=== PATIENT | male | born 1935 | race Caucasian/White ===

== ENCOUNTER 2019-02-14 04:03 | Observation (INO) ==
--- NOTE | 2019-02-14 04:34 | PROVIDER DOCUMENTATION ---
HPI-Chest Pain - General Stated Complaint: CHEST PAIN Time Seen by Provider: 02/14/19 04:24 Source: patient, family Allergies/Adverse Reactions: Patient Allergies Allergy/AdvReac Type Severity Reaction Status Date / Time No Known Allergies Allergy Verified 11/03/18 09:15 Home Medications: Home Medication List Medication Instructions Recorded Confirmed Last Taken Type Albuterol Sulfate [Ventolin] 5 mg INHALATION PRN PRN 11/03/18 02/14/19 02/14/19 08:00 History 5 MG Losartan/Hydrochlorothiazide 1 ea PO DAILY 11/03/18 02/14/19 02/13/19 18:00 History [Losartan-Hctz 100-25 mg Tab] 1 EA Montelukast [Singulair] 10 mg PO DAILY 11/03/18 02/14/19 02/13/19 18:00 History 10 MG Tamsulosin [Flomax] 0.4 mg PO DAILY 11/03/18 02/14/19 02/13/19 18:00 History 0.4 MG Esomeprazole Magnesium [Nexium] 20 mg PO HS 02/14/19 02/14/19 02/13/19 18:00 History 20 mg - History of Present Illness-CP Nature of Presenting Problem: Presents to the EC with complaints of acute onset of chest pain while he was lying in bed. States it is centrally located and went to his back and jaw. He states this has never happened to him before. He thought he was having a heart attack so he came in. he took 4 ASA at home. Endorsed some SOB associated with it but denied any sweating, nausea, vomiting. States he had a stress test many years ago but has never had a cardiac cath. Review of Systems - Adult - REVIEW OF SYSTEMS - ADULT Constitutional: reports: see HPI Eyes: reports: no symptoms reported Ears, Nose, Mouth & Throat: reports: no symptoms reported Cardiovascular: reports: see HPI, chest pain Respiratory: reports: see HPI, shortness of breath Gastrointestinal: reports: no symptoms reported Genitourinary: reports: no symptoms reported Musculoskeletal: reports: back pain Integumentary: reports: no symptoms reported Neurological: reports: no symptoms reported Psychiatric: reports: no symptoms reported Endocrine: reports: no symptoms reported Hematologic/Lymphatic: reports: no symptoms reported Allergic/Immunologic: reports: no symptoms reported All Other Systems: Reviewed and Negative Past History - Adult - PAST MEDICAL HISTORY-ADULT Review of Records: reports: Old Records Reviewed Physical Exam-General - PHYSICAL EXAM-ADULT Initial Vital Signs Reviewed: Yes - CONSTITUTIONAL General Appearance: appears well, alert, mild distress (uncomfortable appearing) - EYES Eyes: PERRL/EOMI - HEAD, EARS, NOSE, MOUTH & THROAT HENMT: normocephalic/atraumatic, moist mucous membranes - NECK Neck: non-tender, full range of motion, supple, normal inspection - RESPIRATORY Respiratory: chest non-tender, lungs clear, normal breath sounds, no respiratory distress, no accessory muscle use - CARDIOVASCULAR Cardiovascular: normal peripheral pulses, bradycardia, systolic murmur - GASTROINTESTINAL (ABDOMEN) Abdominal Exam: normal bowel sounds, non tender, soft - MUSCULOSKELETAL Back Exam: normal inspection, no vertebral tenderness Extremity: normal range of motion, non-tender, normal gait, normal inspection, no pedal edema - SKIN Integumentary: normal color, warm/dry - NEUROLOGIC Neurologic: grossly normal - PSYCHIATRIC Psych/Mental Status: normal mood/affect, oriented x 3 - HEART Score HEART Score: History: Highly Suspicious HEART Score: ECG: Normal HEART Score: Age: > or = 65 Years HEART Score: Risk Factors for Atherosclerotic Disease: 1 or 2 Risk Factors HEART Score: Troponin: < or = Normal Limit Total HEART Score:: 5 Progress - PLAN OF CARE/RESULTS Progress/Plan/Lab Results: Laboratory Results - last 24 hr 02/14/19 02/14/19 02/14/19 05:24 05:24 05:24 WBC 5.00 RBC 4.57 L Hgb 14.0 Hct 41.6 L MCV 91.0 MCH 30.6 MCHC 33.7 RDW Std Deviation 13.4 Plt Count 188 MPV 10.4 Immature Gran % (Auto) 0.4 Neut % (Auto) 67.4 Lymph % (Auto) 17.4 L Andrew % (Auto) 8.8 Eos % (Auto) 5.0 Baso % (Auto) 1.0 H Immature Gran # (Auto) 0.02 Neut # (Auto) 3.37 Lymph # (Auto) 0.87 L Andrew # (Auto) 0.44 Eos # (Auto) 0.25 Baso # (Auto) 0.05 PT INR PTT (Actin FS) Sodium 141 Potassium 3.8 Chloride 105 Carbon Dioxide 25 Anion Gap 11 BUN 20 Creatinine 1.1 Estimated GFR/1.73 m2 > 60 BUN/Creatinine Ratio 18 Glucose 107 H Calculated Osmolality 284 Calcium 8.9 Total Bilirubin 0.42 AST 13 ALT 13 Alkaline Phosphatase 93 Troponin T Kau-V-Qrrzyacskwf Pept 80 Total Protein 6.9 Albumin 3.9 Globulin 3.0 Albumin/Globulin Ratio 1.3 02/14/19 02/14/19 05:24 05:24 WBC RBC Hgb Hct MCV MCH MCHC RDW Std Deviation Plt Count MPV Immature Gran % (Auto) Neut % (Auto) Lymph % (Auto) Andrew % (Auto) Eos % (Auto) Baso % (Auto) Immature Gran # (Auto) Neut # (Auto) Lymph # (Auto) Andrew # (Auto) Eos # (Auto) Baso # (Auto) PT 13.9 INR 1.05 PTT (Actin FS) 37.6 Sodium Potassium Chloride Carbon Dioxide Anion Gap BUN Creatinine Estimated GFR/1.73 m2 BUN/Creatinine Ratio Glucose Calculated Osmolality Calcium Total Bilirubin AST ALT Alkaline Phosphatase Troponin T < 0.010 Ytn-Y-Bchvqctroob Pept Total Protein Albumin Globulin Albumin/Globulin Ratio Orders Category Date Time Status Admit - [facility] Routine AdmDCTranf 02/14/19 10:17 Active Apply Mechanical Device [QM] ORDERED Care 02/14/19 10:17 Active EKG PRN for Chest Pain ORDERED Care 02/14/19 10:17 Active Notify MD if DIRECTED Care 02/14/19 10:17 Active Nursing- MD Consult Request ROUTINE Care 02/14/19 10:17 Completed Saline Loc DIRECTED Care 02/14/19 10:17 Active Update & Confirm Home Medicati ROUTINE Care 02/14/19 10:17 Active Vital Signs Order Q 4-HR ASSESS Care 02/14/19 10:17 Active Z-Document. for Tele Applied ORDERED Care 02/14/19 10:17 Completed Heart Healthy Diet Diet 02/14/19 10:17 Active NPO Diet 02/15/19 00:01 Active CHEST-PORTABLE [RAD] Routine Exams 02/15/19 06:00 Ordered CHEST-PORTABLE [RAD] Stat Exams 02/14/19 04:34 Completed MYOCARDIAL PERF SCAN, STR/REST [NM] Routine Exams 02/15/19 07:00 Ordered CBC WITH ELECTRONIC DIFF [HEME] Routine Lab 02/15/19 06:00 Ordered CBC WITH ELECTRONIC DIFF [HEME] Stat Lab 02/14/19 05:24 Completed CK PROFILE [SP CHEM] Q8H Lab 02/14/19 10:40 Completed CK PROFILE [SP CHEM] Q8H Lab 02/14/19 18:19 Completed CK PROFILE [SP CHEM] Q8H Lab 02/15/19 02:17 Ordered CK TOTAL [CHEM] Q8H Lab 02/15/19 02:17 Ordered COMPREHENSIVE METABOLIC PANEL [CHEM] Routine Lab 02/15/19 06:00 Ordered COMPREHENSIVE METABOLIC PANEL [CHEM] Stat Lab 02/14/19 05:24 Completed LIPID PROFILE W/CALC LDL [LIPIDS] Routine Lab 02/15/19 06:00 Ordered MAGNESIUM [CHEM] Routine Lab 02/14/19 10:40 Completed PRO B-NATRIURETIC PEPTIDE Stat Lab 02/14/19 05:24 Completed PROTIME WITH INR [COAG] Stat Lab 02/14/19 05:24 Completed PTT [COAG] Stat Lab 02/14/19 05:24 Completed TROPONIN T Q8H Lab 02/14/19 10:40 Completed TROPONIN T Q8H Lab 02/14/19 18:19 Completed TROPONIN T Q8H Lab 02/15/19 02:17 Ordered TROPONIN T Stat Lab 02/14/19 05:24 Completed Acetaminophen [Tylenol] Med 02/14/19 10:17 Active 650 mg PO Q6H PRN PRN Aspirin Med 02/14/19 10:17 Active 325 mg PO DAILY Nitroglycerin Med 02/14/19 06:18 Discontinued 0.5 inch TOP NOW ONE Nitroglycerin Sl [Nitroglycerin] Med 02/14/19 10:17 Active 0.4 mg SL Q5M PRN PRN Omeprazole [Prilosec] Med 02/15/19 07:00 Active 20 mg PO DAILY@0700 Ondansetron [Zofran] Med 02/14/19 10:17 Active 4 mg IV Q4H PRN PRN Oxygen Device Routine Oth 02/14/19 10:17 Completed Telemetry [OM.EQ] Routine Oth 02/14/19 10:17 Active EKG [EKG] Routine Ther 02/15/19 06:00 Ordered EKG [EKG] Stat Ther 02/14/19 04:10 Draft Echo Spec/Color Doppler Routine Ther 02/14/19 10:17 Completed Transfer/Admit Order [TRANSFER] Routine Transfer 02/14/19 08:57 Completed Result Diagrams: 02/14/19 05:24 02/14/19 05:24 - EKG 1 Time of EKG reading by physician:: 04:13 EKG Read and Signed by:: Sara Espino EKG Interpretation (*Must complete 3 of following elements*): Abnormal Rate: 48 Rhythm: Bradycardia [place]: normal QRS: normal OK Interval: normal ST Wave: normal - CONSULTS/PCP/HOSPITALIST Notification #1 *Consult/PCP/Hospitalist*: Shiloh bailey Hospitalist Time Discussed: 08:50 Consult Disposition: Will see in ED, Admit - CHANGE OF SHIFT REPORT (ED Provider) 1 Report Given and Care Transferred to:: Dr Panda Time of Transfer: 07:00 Items Pending: Physician Consult/Arrival (Pending hospitalist page back for admission) Departure - Departure Date of Disposition Decision: 02/14/19 Time of Disposition Decision: 06:47 DIAGNOSIS: Chest pain Disposition: ADMITTED INPATIENT 09 Certified Medical Emergency: Emergent Condition: Stable - Critical Care Note This patient required my direct & personal management of CC.: No Attestation - Physician/ TFIFANIE Attestation Patient care was provided by Advanced Practice Provider:: No The physician spent face to face time with patient:: Yes Advanced Practice Provider documentation review:: Supervising physician onsite and consulted in the evaluation and care of this patient. The physician did have a face to face encounter with the patient.
[2019-02-14 05:40] LABS: BASO# 0.05 X1000 (0.0-0.2); EOS# 0.25 X1000 (0.0-0.7); HEMATOCRIT 41.6 % (42.0-52.0); IMM GRAN# 0.02 X1000 (0.0-0.04); IMM GRAN% 0.4 % (0.0-0.5); LYMPH# 0.87 X1000 (1.2-3.4); LYMPH% 17.4 % (20.5-51.1); MCH 30.6 PG (27-31); MCHC 33.7 g/dL (33-37); MONO# 0.44 X1000 (0.11-0.59); MONO% 8.8 % (1.7-9.3); MPV 10.4 FL (7.4-10.4); NEUT# 3.37 X1000 (1.4-6.5); NEUT% 67.4 % (42.2-75.2); PLT 188 X1000 (130-400); RBC 4.57 XMIL (4.7-6.1); RDW 13.4 % (11.5-14.5)
[2019-02-14 05:44] LABS: INR 1.05; PROTIME 13.9 Seconds (11.0-16.0)
[2019-02-14 05:45] LABS: PTT 37.6 Seconds (22.3-41.8)
[2019-02-14] MEDS ORDERED: NITROGLYCERIN TOP ONE (06:18)
[2019-02-14 06:38] LABS: AGAP 11; ALB/GLOB RATIO 1.3; ALBUMIN 3.9 g/dL (3.5-5.0); ALKALINE PHOSPHATASE 93 U/L (32-122); BUN 20 mg/dL (8-22); CALCIUM 8.9 mg/dL (8.8-10.2); CHLORIDE 105 mmol/L (98-107); COSMO 284; CREATININE 1.1 mg/dL (0.7-1.2); ESTIMATED GFR > 60; GLUCOSE 107 mg/dL (70-104); GOT 13 U/L (10-34); GPT 13 U/L (10-44); POTASSIUM 3.8 mmol/L (3.5-5.1); SODIUM 141 mmol/L (136-145); TCO2 25 mmol/L (25-35); TOTAL BILIRUBIN 0.42 mg/dL (0.20-1.00); TOTAL PROTEIN 6.9 g/dL (6.3-8.3)
--- NOTE | 2019-02-14 07:00 | Diag Imaging Result Doc PS360 ---
EXAM: CHEST-PORTABLE 02/14/2019 HISTORY: chest pain TECHNIQUE: AP portable at 0504 COMMENT: There are no previous studies available for comparison. There is some questionable atelectasis in the left base. Otherwise the lungs are clear. The heart size is at the upper limits of normal. IMPRESSION: Minimal left lower lobe atelectasis. Electronically signed by Jarvis Richmond 02/14/2019 6:57 AM
--- NOTE | 2019-02-14 07:32 | EKG Report ---
Test Performed on : 02/14/2019 04:10:19 AM Test Reason : CP Blood Pressure : / mmHG Vent. Rate : 048 BPM Atrial Rate : 048 BPM P-R Int : 168 ms QRS Dur : 106 ms QT Int : 450 ms P-R-T Axes : 055 010 048 degrees QTc Int : 402 ms Sinus bradycardia. with sinus arrhythmia. Cannot rule out Inferior infarct , age undetermined Abnormal ECG When compared with ECG of 03-NOV-2018 09:12, No significant change was found Unconfirmed Result
[2019-02-14] MEDS ORDERED: ZOFRAN IV PRN (10:17)
[2019-02-14] MEDS ORDERED: TYLENOL PO PRN (10:17)
[2019-02-14] MEDS ORDERED: NITROGLYCERIN SL PRN (10:17)
--- NOTE | 2019-02-14 10:38 | HISTORY AND PHYSICAL ---
PRIMARY CARE PROVIDER: Dr. Nelson Carter. CHIEF COMPLAINT: Chest pressure. HISTORY OF PRESENT ILLNESS: Mr. Newsome is an 83-year-old male who carries a past medical history of asthma. He has to use his Ventolin inhaler 6 to 8 times per day, GERD, and hypertension, who reported around midnight he started having a T "pressure" aggravating discomfort at its worst was about a 3 or 4 with some pain in his bilateral neck, right arm pain, and upper back pain. It was resolved with taking 4 baby aspirin. There was no associated shortness of breath, dizziness, nausea, vomiting, diaphoresis, or palpitations. He did report yesterday he was out doing yard work and trimming hedges and shrubbery. He states he is not used to doing that kind of physical activity. However, he has never had a pain like this before so he came to the ED to be evaluated. His first set of cardiac enzymes are negative. We will admit him to the medical telemetry floor for chest pain rule out. PAST MEDICAL HISTORY: 1. Asthma. 2. Gastroesophageal reflux disease. 3. Hypertension. PAST SURGICAL HISTORY: 1. Recent laparoscopic cholecystectomy with Dr. Dontae Carter in October of 2018. 2. Appendectomy. 3. Bilateral cataract surgery. 4. Spinal fusion with [facility]. FAMILY HISTORY: No heart disease. He has a brother and a sister with diabetes. He has a sister at the age of 65, who has been diagnosed with breast cancer, esophageal cancer, nasopharynx and brain cancer who lives in [place]. SOCIAL HISTORY: He is . He lives in [place]. No tobacco, alcohol or illicit drug use. HOME MEDICATIONS: Have not been verified, but what has not been verified is losartan potassium, Singulair, Flomax, and Nexium. ALLERGIES: No known drug allergies. REVIEW OF SYSTEMS: Twelve-point review of systems completely negative except for those mentioned in HPI. PHYSICAL EXAMINATION: VITAL SIGNS: Temperature 97.4 degrees, heart rate 55, respirations 18, blood pressure 138/76, and O2 sat is 95% on room air. GENERAL: Mr. Newsome is a pleasant 83-year-old male who is sitting up on the side of the bed in no acute distress. Currently, chest pain free and has been so for a few hours in no acute distress. HEENT: Atraumatic, normocephalic. PERRL. NECK: Supple. Trachea midline. CARDIOVASCULAR: S1, S2 appreciated. No murmurs, gallops, or rubs noted. RESPIRATORY: Lung sounds clear bilaterally. GI: Soft, nontender, and nondistended. Positive bowel sounds 4 quadrants. EXTREMITIES: Lower extremities with no edema. NEUROLOGIC: No focal deficits noted. DIAGNOSTIC DATA: EKG sinus bradycardia with a sinus arrhythmia at 48 beats per minute. Chest x- ray minimal left lower lobe atelectasis. LABORATORY DATA: White count 5, hemoglobin and hematocrit 14 and 41, and platelet count 188,000. Sodium 141, potassium 3.8, BUN 20, creatinine 1.1, blood glucose is 107. First set of troponin was less than 0.010. ProBNP 80. ASSESSMENT AND PLAN: 1. Chest pain rule out. He did have some typical, but more atypical symptoms. First set of cardiac enzymes were negative. We will continue with full-dose aspirin daily. We will check a lipid profile and echocardiogram. Consult Cardiology if needed, and set him up for a stress test in the morning, and recheck another EKG in the morning. We can do nitroglycerin p.r.n. for any chest pain. 2. Hypertension. We will continue home medications when verified. 3. Gastroesophageal reflux disease. We will continue PPI when verified. 4. Asthma. We will do p.r.n. nebulizers for any shortness of breath or wheezing. 5. Further recommendations to follow physician evaluation, laboratory and diagnostic data. Dictated by JAK Patrick for Ricco Bolaños MD cc: MD David Waters MD Rodney W. Harney, MD MTDD
--- NOTE | 2019-02-14 13:53 | ECHO REPORT ---
ORDER DATE: 02/14/2019 INDICATION: Chest pain. FINDINGS: This is an extremely difficult study with poor windows, off-axis views. 1. The right atrium appears normal in size. 2. Trace tricuspid regurgitation. 3. Normal RV size and systolic function. 4. No significant pulmonic insufficiency. 5. Normal left atrial size. Volume index of 26. 6. No mitral valve prolapse. I do not see any obvious mitral regurgitation. 7. Normal LV size, end-diastolic dimension of 5.3 cm. 8. Moderate left ventricular hypertrophy with posterior and interventricular septal wall thickness of 1.5 cm each. Normal LV systolic function. The estimated EF appears to be 65 to 70 percent. No obvious segmental wall motion abnormalities. 9. The aortic valve is poorly visualized but there does not appear to be any significant degree of stenosis or insufficiency. 10. The aorta appears normal in visualized segments. 11. No pericardial effusion seen. cc: Manuel Horton MD
[2019-02-14] MEDS: ASPIRIN PO SCH (20:01)
--- NOTE | 2019-02-14 21:29 | HISTORY AND PHYSICAL ---
ADDENDUM: I have seen and examined Mr. Newsome today. The was at the bedside at the time of the encounter. Mr. Newsome presented because of acute onset of chest pain early this morning during his sleep, which went on for over 2 hours. He took some aspirin at the time and came to the emergency room. By the time he came, which was about 3 hours later, he referred to have been feeling slightly better. At the time of this encounter, he refers to be feeling a whole lot better. No more chest pain. I have also reviewed his vitals. His current vitals are blood pressure of 118/51, pulse of 81 respiration is 14, temperature 97.6 degrees. Mr. Newsome has a history of hypertension, GERD, BPH, and follows up with Dr. Carter. His physical exam for the most part is unremarkable. His EKG on admission shows a normal sinus rhythm with a rate of about 48, no ST-segment abnormality, and no obvious T-wave abnormality. There are some Q-waves only in the lead 3. The AVF did not show any remarkable Q-waves. Troponins have been trended twice and they have both come back negative. We will continue to trend that. CBC and chemistry for the most part are unremarkable. An echocardiogram which has been done shows an ejection fraction of 65 to 70 percent. A chest x- ray showed minimal left lower lobe atelectasis. ASSESSMENT: Mr. Newsome is an 83-year-old, with a history of hypertension, who comes to the emergency department because of acute onset of chest pain, concerning if this is due to coronary atherosclerotic disease. I think it is reasonable to stress him and get Cardiology to evaluate him. Please refer to the details of the History and Physical, which has been dictated by the [employer] in the chart. cc: Ricco Bolaños MD
[2019-02-15 03:59] LABS: CK INDEX 2.1 (0.0-2.5); CK-MB 4.36 ng/mL (0.0-5.0)
[2019-02-15 05:24] LABS: BASO# 0.03 X1000 (0.0-0.2); BASO% 0.6 % (0.0-0.8); EOS# 0.29 X1000 (0.0-0.7); EOS% 5.5 % (0.0-10.0); HEMATOCRIT 39.8 % (42.0-52.0); HEMOGLOBIN 13.6 g/dL (14.0-18.0); LYMPH# 0.91 X1000 (1.2-3.4); LYMPH% 17.3 % (20.5-51.1); MCH 31.1 PG (27-31); MCHC 34.2 g/dL (33-37); MCV 90.9 FL (81-99); MONO# 0.43 X1000 (0.11-0.59); MONO% 8.2 % (1.7-9.3); MPV 10.8 FL (7.4-10.4); NEUT# 3.61 X1000 (1.4-6.5); NEUT% 68.4 % (42.2-75.2); PLT 170 X1000 (130-400); RBC 4.38 XMIL (4.7-6.1); RDW 13.3 % (11.5-14.5); WBC 5.27 X1000 (4.8-10.8)
[2019-02-15 06:03] LABS: AGAP 9; ALB/GLOB RATIO 1.4; ALBUMIN 3.7 g/dL (3.5-5.0); ALKALINE PHOSPHATASE 83 U/L (32-122); BUN 18 mg/dL (8-22); CALCIUM 9.1 mg/dL (8.8-10.2); CHLORIDE 106 mmol/L (98-107); CHOLESTEROL 147 mg/dL (0-200); COSMO 285; ESTIMATED GFR > 60; GLUCOSE 96 mg/dL (70-104); GOT 11 U/L (10-34); GPT 12 U/L (10-44); HDL 38 mg/dL (35-55); LDL 90 mg/dL; POTASSIUM 3.8 mmol/L (3.5-5.1); SODIUM 142 mmol/L (136-145); TCO2 27 mmol/L (25-35); TOTAL BILIRUBIN 0.72 mg/dL (0.20-1.00); TOTAL PROTEIN 6.3 g/dL (6.3-8.3); TRIGLYCERIDES 94 mg/dL (39-160); VLDL 19 mg/dL
--- NOTE | 2019-02-15 06:23 | Diag Imaging Result Doc PS360 ---
CHEST-PORTABLE - 02/15/2019 INDICATION: Chest Pain COMPARISON: 02/14/2019 FINDINGS: Stable mild infiltrate or atelectasis at the left lower lobe. Heart size remains normal. No pneumothorax or pleural effusion. IMPRESSION: No significant change from prior. Electronically signed by Jamey Kearns 02/15/2019 6:20 AM
[2019-02-15] MEDS ORDERED: PRILOSEC PO SCH (07:00)
--- NOTE | 2019-02-15 07:42 | EKG Report ---
Test Performed on : 02/15/2019 06:18:27 AM Test Reason : CP Blood Pressure : / mmHG Vent. Rate : 055 BPM Atrial Rate : 055 BPM P-R Int : 172 ms QRS Dur : 096 ms QT Int : 438 ms P-R-T Axes : 069 043 059 degrees QTc Int : 419 ms Sinus bradycardia. Otherwise normal ECG Confirmed by Narcisa ARSHAD, Iván Dickinson ([id number]) on 02/17/2019 6:54:12 AM
[2019-02-15] MEDS ORDERED: LEXISCAN ONE (08:51)
[2019-02-15 12:47] VITALS: BP 164/68
[2019-02-15] MEDS: ASPIRIN PO SCH (13:09)
--- NOTE | 2019-02-15 15:43 | Diag Imaging Result Document ---
PROCEDURE NAME: MYOCARDIAL PERF SCAN, STR/REST - 02/15/2019 STUDY: Lexiscan Cardiolite stress test. SUMMARY: Lexiscan was infused per standard protocol. There was no chest pain. Stress electrocardiogram was negative for ischemia. Following Lexiscan infusion, Cardiolite was injected. 16 millicuries of Cardiolite was injected for the rest phase. 44 millicuries of Cardiolite was injected for the stress phase. Images revealed significant diaphragmatic and chest wall attenuation. Normal left ventricular cavity size. There is low-grade fixed defect in the base of the inferior wall suggestive of attenuation defect. There is no evidence of ischemia. Left ventricular ejection fraction by gated SPECT was 73%. CONCLUSIONS: 1. No chest pain. 2. Negative Lexiscan stress electrocardiogram. 3. Myocardial perfusion images revealed no evidence of ischemia. 4. There is low-grade small-sized fixed defect in the base of the inferior wall suggestive of attenuation defect. 5. Left ventricular ejection fraction 73%. cc: David Sterling MD
--- NOTE | 2019-02-15 20:08 | CARDIOLOGY CONSULTATION ---
DATE: 02/15/2019 IMPRESSION: 1. Episode of chest discomfort with mixed features, but concerning for possible underlying myocardial ischemia. Despite extended duration of chest discomfort, there is no evidence and cardiac enzymes of myocardial insult, thus making overall presentation atypical for myocardial ischemia. 2. Hypertension. 3. Asthma. 4. Gastroesophageal reflux disease. 5. Status post laparoscopic cholecystectomy in October 2018, for cholelithiasis. RECOMMENDATIONS: 1. Agree with noninvasive workup. I have reviewed Lexiscan sestamibi study and there is no evidence of inducible myocardial ischemia. Normal left ventricular ejection fraction is evident on both Lexiscan sestamibi study and echocardiography. 2. Given results of noninvasive cardiac studies and predominantly atypical nature of clinical presentation, I suspect it is more likely that his recent chest symptoms are not cardiac. However, should he continue to have recurrent chest discomfort of this nature, further evaluation with coronary angiography would be prudent. HISTORY: This 83-year-old, white male, with past history of hypertension, asthma, gastroesophageal reflux disease, and fairly recent laparoscopic cholecystectomy for cholelithiasis, was admitted through the emergency room for evaluation of chest discomfort. He relates that he tends to stay up late at night watching TV. Not long after he retired for bed and was lying down, he started experiencing chest pressure. There were some associated extension of discomfort up into his neck as well as his right upper extremity. Discomfort was rather persistent without interruption. He got up and sat in his recliner for a period of time. Movement or change in position did not seem to affect discomfort at all. He took an aspirin. After several hours, he notified his and they came to the emergency room for evaluation. Discomfort was relieved with treatment in the emergency room. All in all, discomfort lasted at least 3 or 4 hours. He has history of gastroesophageal reflux disease, but this has caused a different type of chest discomfort, more of a burning discomfort. He is generally fairly active. He did a fair amount of yard work yesterday and had no exertional chest symptoms. He is a nonsmoker. PAST MEDICAL HISTORY: 1. Asthma. 2. Gastroesophageal reflux disease. 3. Hypertension. PAST SURGICAL HISTORY: Includes recent laparoscopic cholecystectomy for cholelithiasis in October 2018, appendectomy, bilateral cataract surgery, and spinal fusion surgery. ALLERGIES: He has no known drug allergies. MEDICATIONS PRIOR TO ADMISSION: As listed. SOCIAL HISTORY: He is and lives in [place]. He does not smoke nor use alcohol. FAMILY HISTORY: Negative for premature coronary disease. REVIEW OF SYSTEMS: Pulmonary: Noncontributory beyond history of present illness. Gastrointestinal: Noncontributory beyond history of present illness. Constitutional: Noncontributory beyond history of present illness. Remainder of review of systems negative/noncontributory beyond history of present illness with 14 total systems reviewed. PHYSICAL EXAMINATION: This is a pleasant, older white male, in no distress. Blood pressure 164/68, heart rate 57, oxygen saturation 99% on room air.HEENT: Extraocular movements appear intact. Mucous membranes are moist. Neck: Supple without jugular venous distention. There are no carotid bruits. Chest: Clear to auscultation bilaterally. Cardiac: Regular rate and rhythm without appreciable murmur or gallop. Abdomen: Soft. Bowel sounds are normal. Extremities: Without edema. Neurologic: Reveals him to be alert and fully oriented. Speech is fluent. He moves all 4 extremities equally well. Skin: Warm and dry. Psychiatric: Reveals his mood to be appropriate. DIAGNOSTIC DATA: A 12-lead EKG demonstrates sinus bradycardia, but was otherwise within normal limits. LABORATORY DATA: Includes initial troponin less than 0.01, with followup troponins of less than 0.01, less than 0.01, and less than 0.01. CPK initially 171, with followup CPKs of 174 and 210. Sodium 142, potassium 3.8, chloride 106, carbon dioxide 27, BUN 18, creatinine 1.1, glucose 96. Triglycerides 94, total cholesterol 147, LDL cholesterol 90, HDL cholesterol 38. cc: Vargas Lamb MD
--- NOTE | 2019-02-17 04:27 | DISCHARGE SUMMARY ---
ADMISSION DATE: 02/14/2019 DISCHARGE DATE: 02/15/2019 DISPOSITION: Home. FOLLOW-UP: 1. PCP Dr. Carter. 2. Dr. Lamb. CONSULTATION DURING ADMISSION: Cardiology was consulted. Patient was seen by Dr. Lamb. INVASIVE PROCEDURES DONE DURING ADMISSION: None. IMAGING STUDIES OF SIGNIFICANCE: 1. Chest x-ray on admission showed minimal left lower lobe atelectasis. 2. Echocardiogram showed ejection fraction of 65% with no wall motion abnormality. Stress test shows no evidence of ischemia with an ejection fraction of 73%. Multiple EKGs did not show any acute changes. Troponin's were trended 4 times; all negative. ADMISSION DIAGNOSES: 1. Chest pain. 2. Hypertension. 3. Gastroesophageal reflux disease. 4. Asthma. DIAGNOSES AT TIME OF DISCHARGE: 1. Atypical chest pain on presentation with normal cardiac markers, EKGs, echo, and stress test, presumably non cardiac. 2. Hypertension. 3. History of gastroesophageal reflux disease. 4. Benign prostatic hypertrophy. DISCHARGE MEDICATIONS: 1. Montelukast 10 mg p.o. daily. 2. Flomax 0.4 p.o. daily. 3. Albuterol inhaler p.r.n. 4. Losartan/hydrochlorothiazide. 5. Nexium 20 mg p.o. at bedtime. PRESENTING COMPLAINT: Chest pressure. HISTORY OF PRESENTING COMPLAINT: Mr. Newsome is an 83-year-old male who is known to have hypertension, asthma and GERD, came to the emergency department because of chest pressure which got slightly worse with exertion. The patient wakes up in the middle of the night with chest discomfort. He took about 3 to 4 baby aspirin which according to him by the time he came to the ER it had slightly improved. Mr. Newsome was subsequently admitted to rule out any cardiac issues. HOSPITAL COURSE: Mr. Newsome was admitted to the medical floor under tele monitoring. His troponin's were trended 4 times which were negative. A repeat EKG also did not show any acute changes. Echocardiogram was done which was negative, and stress test did not show any ischemic changes. The patient was seen and evaluated by Cardiology. At the day after discharge, after the stress test, they recommended that Mr. Newsome could safely be discharged, and that he would need to follow up with them and with the primary care doctor. Mr. Newsome's chest pain is presumed noncardiac. He has been advised to continue his treatment for the GERD, and also follow up with GI. At the time of discharge, Mr. Newsome is completely asymptomatic. He feels well. His lab work has been reviewed, all within normal parameters. His current vitals show blood pressure 164/68, pulse 57, respirations 17, and temperature is 97.8. The patient was saturating 99% on room air. Physical exam is completely within normal range. We think Mr. Newsome is stable for discharge. All the discharge instructions were discussed with him. The was at the bedside at the time of the encounter. Both expressed understanding. TIME SPENT: Time spent for discharge is 35 minutes. cc: MD Nelson Waters MD William D. Denney, MD
== END 2019-02-15 15:00 | disposition home or self-care (01) ==
LOC: EDIPHOLD 04:03 → ED 04:03 → 1N 11:31
PROVIDERS: ATTEND Internal Medicine